=== PATIENT | female | born 1990 | race Two or more races ===

== ENCOUNTER 2025-08-28 08:49 | Emergency (ER) | payer BC ==
[~2025-08-28] VITALS: Ht 154.9 cm; Wt 56.7 kg
[2025-08-28 08:54] VITALS: BP 111/77; TEMP 98.9
[2025-08-28] MEDS ORDERED: IPRATROPIUM NEB FS 0.5 MG/2.5 ML AMPUL.NEB ONE (09:15)
[2025-08-28] MEDS ORDERED: ALBUTEROL FS 2.5 MG/3 ML VIAL.NEB ONE (09:15)
[2025-08-28 09:22] VITALS: O2SAT 96
[2025-08-28] MEDS: ALBUTEROL FS 2.5 MG/3 ML VIAL.NEB NEB ONE (09:22)
[2025-08-28] MEDS: IPRATROPIUM NEB FS 0.5 MG/2.5 ML AMPUL.NEB NEB ONE (09:22)
[2025-08-28 09:28] LABS: PLATELET COUNT (AUTO) 235 K/uL (150-450); RED BLOOD CELL COUNT(AUTO) 4.69 MIL/uL (4.0-5.2); RED CELL DISTRIBUTION WIDTH 13.3 % (11.5-15.0); WHITE BLOOD COUNT (AUTO) 9.0 K/uL (4.3-11.0)
[2025-08-28 09:48] LABS: ASPARTATE AMINOTRANSFERASE 20 U/L (15-37); CALCIUM, SERUM 9.4 mg/dL (8.5-10.1); CREATININE 0.7 mg/dL (0.6-1.3); SODIUM SERUM 141 mmol/L (136-145); TOTAL PROTEIN, SERUM 8.1 g/dL (6.4-8.2); UREA NITROGEN, BLOOD 14 mg/dL (7-18)
[2025-08-28 10:03] VITALS: O2SAT 100
[2025-08-28 11:03] VITALS: O2SAT 99
== END 2025-08-28 11:09 | disposition home or self-care (01) ==
LOC: ER 08:52
DX: R05.9 Cough, unspecified (principal); R06.02 Shortness of breath; R07.89 Other chest pain; Z20.822 Contact with and (suspected) exposure to COVID-19
CPT/HCPCS: 36415; 71046; 80048-TC; 80076-TC; 84484-TC; 84702-TC; 85025-TC